=== PATIENT | female | born 1970 | race Caucasian/White ===

== ENCOUNTER → 2016-09-28 | Outpatient (CLI) | payer BC ==
--- NOTE | 2016-09-28 13:56 | MAMMOGRAPHY REPORT ---
UNILATERAL RIGHT DIGITAL DIAGNOSTIC MAMMOGRAM TOMOSYNTHESIS WITH CAD AND TARGETED RIGHT ULTRASOUND: 09/28/2016 CLINICAL HISTORY: History of benign ultrasound guided core needle biopsy of a right subareolar breas t mass March 2016, with pathology yielding benign findings including adenosis. Here for six-month follow-up of previously seen right breast masses. TECHNIQUE: Breast tomosynthesis in addition to standard 2D mammography was performed. Current study was also evaluated with a Computer Aided Detection (CAD) system. Right CC and MLO 2-D and tomosynt hesis images were obtained. COMPARISON: Comparison is made to exams dated: 04/11/2016 mammogram, 04/11/2016 ultrasound biopsy, 03/28/2016 ultrasound, 03/15/2016 mammogram, 03/12/2015 mammogram, and 03/10/2014 mammogram - [facility]. BREAST COMPOSITION: The tissue of the right breast is heterogeneously dense, which may obscure smal l masses. FINDINGS: The previously seen round partially circumscribed and partially obscured mass within the right subareolar breast is stable compared to the March 2016 exam, with a biopsy marker clip seen at the edge of the mass. The mass was previously biopsied and yielded benign findings. The remaind er of the right breast is stable compared to prior exams, without suspicious masses, calcifications, or areas of architectural distortion noted. Targeted ultrasound was performed of the previously seen right breast masses. In the right breast a t 9:00 periareolar region, there is an oval anechoic circumscribed mass with a thin internal septati on, measuring 6 x 3 x 5 mm. Findings are consistent with a benign cyst. In the right breast at 6:0 0 periareolar region, there is an oval anechoic circumscribed mass with a few thin internal septatio ns, measuring 7 x 3 x 7 mm. Findings are consistent with a benign cyst. In the right breast at 8:0 0 periareolar region, there is an oval circumscribed anechoic mass with multiple thin internal septa tions, measuring 5 x 2 x 6 mm. Findings are consistent with a benign cyst cluster. These masses ar e not significantly changed compared to the prior March 2016 exam. In the right subareolar breast , there is mild ectasia as well as an oval circumscribed hypoechoic mass which measures 8 x 3 x 9 mm , previously measuring 6 x 9 mm. This was previously biopsied and yielded benign pathology, and is not significantly changed in size mammographically and sonographically when accounting for slight di fferences in measurement technique. IMPRESSION: ACR BI-RADS CATEGORY 2: BENIGN, TARGETED ULTRASOUND ACR BI-RADS CATEGORY 2: BENIGN The right subareolar breast mass is stable compared to the March 2016 exam, and was previously bio psied and yielded benign pathology. Other previously seen right breast masses on ultrasound are sta ble and consistent with benign cysts. There is no mammographic or targeted sonographic evidence of malignancy. Return to annual mammogram screening schedule is recommended, due March 2017. The pat ient has been verbally notified of the results. Approximately 10% of breast cancers are not detected with mammography. A negative mammographic repor t should not delay biopsy if a clinically suggestive mass is present. Jayleen Whitaker M.D. ah/:09/28/2016 08:29:05 [employer] Commissioner: Noa RIOS)(Stephen), [facility] letter sent: Normal 1/2 BI-RADS Code: ACR BI-RADS Category 2: Benign Ultrasound BI-RADS: ACR BI-RADS Category 2: Benign
== END | disposition home or self-care (01) ==
LOC: C.MAMM 08:01
PROVIDERS: ATTEND Internal Medicine
DX: N63 Unspecified lump in breast (principal)

== ENCOUNTER → 2017-03-20 | Outpatient (CLI) | payer BC ==
--- NOTE | 2017-03-20 14:15 | MAMMOGRAPHY REPORT ---
BILATERAL DIGITAL DIAGNOSTIC MAMMOGRAM TOMOSYNTHESIS WITH CAD: 03/20/2017 CLINICAL HISTORY: Follow-up after benign ultrasound guided core biopsy in the retroareolar right [address] yielded adenosis. Due for annual bilateral screening exam. TECHNIQUE: Bilateral breast tomosynthesis in addition to standard 2D mammography was performed. Curre nt study was also evaluated with a Computer Aided Detection (CAD) system. COMPARISON: Comparison is made to exams dated: 09/28/2016 ultrasound, 09/28/2016 mammogram, 04/11/2016 mammogram, 04/11/2016 ultrasound biopsy, 03/28/2016 ultrasound, and 03/15/2016 mammogram - [facility]. BREAST COMPOSITION: The tissue of both breasts is heterogeneously dense, which may obscure small mas ses. FINDINGS: There is a stable ribbon-shaped biopsy marker clip in the middle one third of the retroareo lar right breast. The previously biopsied mass has significantly decreased in size mammographically, currently measuring 5.3 mm on the MLO view, previously measuring 9.6 mm. No new suspicious mass, ar chitectural distortion or cluster of suspicious microcalcifications is seen bilaterally. IMPRESSION: ACR BI-RADS CATEGORY 2: BENIGN The previously biopsied mass in the retroareolar right breast has decreased in size mammographically, confirming benignity. There is no mammographic evidence of malignancy in the breasts. A 1 year scre ening mammogram is recommended. The patient has been verbally notified of the results. Approximately 10% of breast cancers are not detected with mammography. A negative mammographic report should not delay biopsy if a clinically suggestive mass is present. Peyton Gimenez M.D. ay/:03/20/2017 08:32:04 [employer]: Shea Hernandez, [facility] letter sent: Normal 1/2 BI-RADS Code: ACR BI-RADS Category 2: Benign
== END | disposition home or self-care (01) ==
LOC: C.MAMM 08:00
PROVIDERS: ATTEND Internal Medicine
DX: N60.21 Fibroadenosis of right breast (principal)